=== PATIENT | female | born 1960 | race Two or more races ===

== ENCOUNTER → 2016-08-27 | Outpatient (CLI) | payer OTHER ==
[~2016-08-27] MED LIST: CONTRAST GIVEN MC PRN; IOHEXOL 300 MG/ML 75 ML VIAL IV ONE
--- NOTE | 2016-08-27 08:56 | RAD ---
Indication urinary frequency. A CT urogram was performed. Initially noncontrast imaging was performed through the abdomen and pelvis. This was followed by portal venous phase imaging through the kidneys and finally delayed images through the abdomen and pelvis. Images were generated in the coronal and sagittal planes and reviewed. 75 cc of Omnipaque 300 was administered intravenously. No oral contrast was administered. No prior imaging of the kidneys or abdomen is available. On the initial noncontrast images no renal anomaly is seen. There are no renal calculi. There are no calculi seen along the course of either ureter. Occasional phleboliths are noted in the pelvis.. The portal venous phase images appear normal. No renal anomaly is seen. The delayed images of the kidneys also appear normal. The ureters appear normal in their course and caliber and the urinary bladder appears grossly normal The lung bases are clear. There is a hernia in the left groin containing only fat. The liver and spleen appear unremarkable and the gallbladder appears grossly normal. No adrenal anomalies are seen and the pancreas appears normal. Mass inflammatory process or acute finding in the abdomen is not seen. Occasional diverticula are seen associated with the large bowel. No active inflammation is seen. IMPRESSION: Normal kidneys. No acute finding seen in the abdomen or pelvis. Hernia, containing only fat, in the left groin. PQRS Compliance Statement: One or more of the following individualized dose reduction techniques were utilized for this examination: 1. Automated exposure control 2. Adjustment of the mA and/or kV according to patient size 3. Use of iterative reconstruction technique
== END | disposition home or self-care (01) ==
LOC: CT 06:24
PROVIDERS: ATTEND Nurse Practitioner Occupational Health
DX: R35.0 Frequency of micturition (principal); K40.90 Unilateral inguinal hernia, without obstruction or gangrene, not specified as recurrent
CPT/HCPCS: 74178; Q9967

== ENCOUNTER → 2018-06-15 | Outpatient (CLI) | payer OTHER ==
--- NOTE | 2018-06-15 08:48 | RAD ---
DATE: 06/15/2018 EXAM: MAMMO JUSTIN SCREENING BILATERAL HISTORY: Routine screening COMPARISON: 07/21/2014 This study was interpreted with the benefit of Computerized Aided Detection (CAD). Breast Density: HETERO The breast parenchyma is heterogenously dense, which could reduce sensitivity of mammography. Breast parenchyma level C. FINDINGS: 2-D and 3-D tomosynthesis imaging was performed in CC and MLO projections. No new or enlarging breast densities are seen. Minimal benign type calcification is present. No suspicious microcalcifications have developed. IMPRESSION: Stable mammograms without evidence of malignancy. BI-RADS CATEGORY: 2 BENIGN FINDING(S) RECOMMENDED FOLLOW-UP: 12M 12 MONTH FOLLOW-UP PQRS compliance statement: Patient information was entered into a reminder system with a target due date for the next mammogram. Mammography is a sensitive method for finding small breast cancers, but it does not detect them all and is not a substitute for careful clinical examination. A negative mammogram does not negate a clinically suspicious finding and should not result in delay in biopsying a clinically suspicious abnormality. "Our facility is accredited by the [employer] Mammography [employer]."
== END | disposition home or self-care (01) ==
LOC: MAMMO 08:02
PROVIDERS: ATTEND Family Medicine
DX: Z12.31 Encounter for screening mammogram for malignant neoplasm of breast (principal)
CPT/HCPCS: 77063; 77067

== ENCOUNTER → 2019-06-29 | Outpatient (CLI) | payer OTHER ==
--- NOTE | 2019-06-30 14:38 | RAD ---
DATE: 06/29/2019. EXAM: DIGITAL SCREEN BILAT W/CAD. HISTORY: Routine mammographic screening. COMPARISON: 06/15/2018. This study was interpreted with the benefit of Computerized Aided Detection (CAD). FINDINGS: Breast Density: DENSE The breast parenchyma is dense, which could reduce the sensitivity of mammography. Breast parenchyma level density D.. Vascular calcifications are benign. There are no suspicious masses, microcalcifications or architectural distortion. The parenchymal pattern is stable. BI-RADS CATEGORY: 2 BENIGN FINDING(S). RECOMMENDED FOLLOW-UP: 12M 12 MONTH FOLLOW-UP. PQRS compliance statement: Patient information was entered into a reminder system with a target due date 06/29/2020 for the next mammogram. Mammography is a sensitive method for finding small breast cancers, but it does not detect them all and is not a substitute for careful clinical examination. A negative mammogram does not negate a clinically suspicious finding and should not result in delay in biopsying a clinically suspicious abnormality. "Our facility is accredited by the [employer] Mammography [employer]."
== END | disposition home or self-care (01) ==
LOC: MAMMO 08:14
PROVIDERS: ATTEND Family Medicine
DX: Z12.31 Encounter for screening mammogram for malignant neoplasm of breast (principal); N64.89 Other specified disorders of breast
CPT/HCPCS: 77067

== ENCOUNTER → 2020-06-26 | Outpatient (CLI) | payer OTHER ==
--- NOTE | 2020-06-26 13:51 | RAD ---
CERVICAL SPINE 2-3V DATE: 06/26/2020 12:00 AM INDICATION: Reason: NECK PAIN. NO KNOWN INJURY / Spl. Instructions: / History: COMPARISON: None. FINDINGS: The cervical spine is visualized to the level of the cervicothoracic junction on the lateral views. Bones/Alignment: No evidence of acute fracture. There is no listhesis. Normal alignment of the lateral masses of C1 on C2. Joints: Mild degenerative disc disease, moderate at C5-6 The facets are normally aligned. Soft tissue: No significant prevertebral soft tissue swelling. IMPRESSION: Mild to moderate cervical spondylosis. Electronically signed by: Kiko Zaragoza MD (06/26/2020 1:48 PM) [id number]
--- NOTE | 2020-06-26 15:25 | RAD ---
Study: CR CHEST PA LATERAL Indication: Wheezing. Comparison: None. Findings: The cardiomediastinal silhouette is within normal limits for size. Relatively symmetric apple. Mildly increased lung markings distributed throughout both lungs. Findings at both apices most compatible with scarring. The right minor fissure is slightly elevated and there is faintly more pronounced reticular densities above the minor fissure. No pleural effusion or pneumothorax. Impression: Mild generalized increase in lung markings with faintly more pronounced reticular densities above the right minor fissure. The minor fissure is slightly elevated as well. A chronic etiology is possible given scarring at the apices though a mild infectious process is a consideration as well. Consider follow-up such as in 1 month to confirm stability or improvement. Electronically signed by: DURGA JOHNSON MD (06/26/2020 3:23 PM) [id number]
== END ==
LOC: RAD 12:33
PROVIDERS: ATTEND Family Medicine
DX: M47.812 Spondylosis without myelopathy or radiculopathy, cervical region (principal); R06.2 Wheezing
CPT/HCPCS: 71046; 72040

== ENCOUNTER → 2020-07-01 | Outpatient (CLI) | payer OTHER ==
--- NOTE | 2020-07-02 09:27 | RAD ---
DATE: 07/01/2020 2:50 PM EXAM: DIGITAL SCREEN BILAT W/CAD HISTORY: Screening COMPARISON: 06/29/2019 Bilateral full field craniocaudal and mediolateral oblique images were obtained using digital technique. This study was interpreted with the benefit of Computerized Aided Detection (CAD). FINDINGS: Breast Density: HETERO The breast parenchyma Is heterogeneously dense, which could reduce sensitivity of mammography. Breast parenchyma level C No suspicious masses, microcalcifications or architectural distortion is present to suggest malignancy in either breast. The visualized axillae are unremarkable. IMPRESSION: No mammographic evidence of malignancy. BI-RADS CATEGORY: 1 NEGATIVE RECOMMENDED FOLLOW-UP: 12M 12 MONTH FOLLOW-UP Annual screening mammography is recommended, unless clinically indicated sooner based on symptoms or change in physical exam. PQRS compliance statement: Patient information was entered into a reminder system with a target due date for the next mammogram. Mammography is a sensitive method for finding small breast cancers, but it does not detect them all and is not a substitute for careful clinical examination. A negative mammogram does not negate a clinically suspicious finding and should not result in delay in biopsying a clinically suspicious abnormality. "Our facility is accredited by the [employer] Mammography [employer]."
== END ==
LOC: MAMMO 14:43
PROVIDERS: ATTEND Family Medicine
DX: Z12.31 Encounter for screening mammogram for malignant neoplasm of breast (principal)
CPT/HCPCS: 77067

== ENCOUNTER → 2020-07-29 | Outpatient (CLI) | payer OTHER ==
--- NOTE | 2020-07-29 16:45 | RAD ---
Noncontrast CT scan of the chest compared to chest x-ray dated June 262019 for abnormal chest x-ray. TECHNIQUE AND FINDINGS: Contiguous axial CT imaging is obtained from the thoracic inlet to the base o f diaphragm. No IV contrast was administered. FINDINGS: There are changes of antecedent granulomatous disease. No suspicious mediastinal, hilar, or axillary lymphadenopathy is identified. Evaluation of the upper abdominal organs is limited by lack of IV contrast, however no gross morphologic abnormalities are identified. Mild aortic atherosclerosi s is seen. There are no significant osseous abnormalities. There are no suspicious lung nodules or masses. Central airways are patent. There are patchy irregula r groundglass appearing pleural parenchymal nodular infiltrates in the lung apices bilaterally, with relative sparing of the middle lobe and bilateral lower lobes. There is some subtle increased smooth reticulation at the lung apices as well. 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 IMPRESSION: 1. 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 This most likely reflects sequelae of atypical or viral infectious etiologies , however other considerations including sarcoidosis, allergic etiologies, chronic hypersensitivity p neumonitis, sternotomy patient exposure, or drug reaction should be considered. Recommend follow-up C T in 3 months time. Para PQRS Compliance Statement: One or more of the following individualized dose reduction techniques were utilized for this examinat ion: 1. Automated exposure control 2. Adjustment of the mA and/or kV according to patient size 3. Use of iterative reconstruction technique Electronically signed by: Geoffrey Carolina MD (07/29/2020 4:42 PM) [id number]
== END ==
LOC: CT 09:58
PROVIDERS: ATTEND Internal Medicine Pulmonary Disease
DX: R91.8 Other nonspecific abnormal finding of lung field (principal); I70.0 Atherosclerosis of aorta
CPT/HCPCS: 71250